=== PATIENT | female | born 1995 | race Caucasian/White ===

== ENCOUNTER 2018-03-21 19:33 | Inpatient (IN) | payer MEDICAID ==
[~2018-03-21] VITALS: Ht 162.6 cm; Wt 58.2 kg
[2018-03-21 20:18] LABS: BASOPHIL % 0.4 % (0-2); PLATELET COUNT 234 x10^3mcL (130-400); RED CELL DISTRIBUTION WIDTH 12.9 % (11.5-14.5)
[2018-03-21 20:22] LABS: UA SPECIFIC GRAVITY 1.015 (1.005-1.035); microscopic required? YES; urine erythrocyte 1+ (NEGATIVE)
[2018-03-21 20:39] LABS: CALCIUM 9.1 mg/dL (8.5-10.1); CHLORIDE SERUM 103 mmol/L (98-107); CREATININE SERUM 0.5 mg/dL (0.6-1.0); GFR1 > 60 mL/min; GLUCOSE SERUM 98 mg/dL (74-106); POTASSIUM SERUM 3.7 mmol/L (3.5-5.1); SODIUM SERUM 138 mmol/L (136-145)
[2018-03-21 20:43] LABS: ALBUMIN 3.7 g/dL (3.4-5.0); ALKALINE PHOSPHATASE 99 U/L (46-116); ALT/SGPT 27 U/L (14-59); AST/SGOT 17 U/L (15-37); BILIRUBIN TOTAL 0.56 mg/dL (0.20-1.00); LIPASE 86 IU/L (73-393); TOTAL PROTEIN, SERUM 7.9 g/dL (6.4-8.2)
[2018-03-21 22:38] LABS: AMPHETAMINE QUAL UR NONE DETECTED (NEG <=1000)
[2018-03-21 22:43] LABS: T3 TOTAL 1.38 ng/mL
[2018-03-21 22:44] LABS: FREE T4 0.88 ng/dL (0.76-1.46); FREE THYROXINE INDEX 2.5 ug/dL (1.4-4.5); T4(THYROXINE) 7.3 ug/dL (4.7-13.3)
[2018-03-21 22:47] VITALS: BP 112/64
[2018-03-21 23:09] LABS: MAGNESIUM 2.2 mg/dL (1.8-2.4); PHOSPHOROUS 3.3 mg/dL (2.5-4.9)
[2018-03-21 23:15] LABS: CHOLESTEROL/HDL RATIO 2.7
[2018-03-22 04:47] VITALS: BP 107/68
[2018-03-22 05:52] LABS: CARBON DIOXIDE 20.1 mmol/L (21-32); CHLORIDE SERUM 105 mmol/L (98-107); CREATININE SERUM 0.5 mg/dL (0.6-1.0); GFR1 > 60 mL/min; GLUCOSE SERUM 109 mg/dL (74-106); MAGNESIUM 1.6 mg/dL (1.8-2.4); PHOSPHOROUS 3.1 mg/dL (2.5-4.9); POTASSIUM SERUM 3.3 mmol/L (3.5-5.1); SODIUM SERUM 136 mmol/L (136-145)
[2018-03-22 06:50] LABS: BASOPHIL % 0.1 % (0-2); PLATELET COUNT 213 x10^3mcL (130-400); RED CELL DISTRIBUTION WIDTH 12.9 % (11.5-14.5)
[2018-03-22 08:40] VITALS: BP 107/64
[2018-03-22 13:50] VITALS: BP 111/68
[2018-03-22 18:01] VITALS: BP 105/59
[2018-03-22 20:11] VITALS: BP 107/66
[2018-03-23 05:24] VITALS: BP 99/65
[2018-03-23 06:33] LABS: BASOPHIL % 0.2 % (0-2); PLATELET COUNT 200 x10^3mcL (130-400); RED CELL DISTRIBUTION WIDTH 12.9 % (11.5-14.5)
[2018-03-23 07:18] LABS: CALCIUM 8.2 mg/dL (8.5-10.1); CHLORIDE SERUM 106 mmol/L (98-107); CREATININE SERUM 0.4 mg/dL (0.6-1.0); GFR1 > 60 mL/min; GLUCOSE SERUM 91 mg/dL (74-106); MAGNESIUM 1.9 mg/dL (1.8-2.4); POTASSIUM SERUM 3.8 mmol/L (3.5-5.1); SODIUM SERUM 137 mmol/L (136-145)
[2018-03-23 09:58] VITALS: BP 102/57
[2018-03-23 13:15] VITALS: BP 96/55
[2018-03-23 18:07] VITALS: BP 98/56
[2018-03-23 21:36] VITALS: BP 105/65
[2018-03-24 05:49] VITALS: BP 99/59
[2018-03-24 05:56] LABS: CALCIUM 8.4 mg/dL (8.5-10.1); CARBON DIOXIDE 23.9 mmol/L (21-32); CHLORIDE SERUM 113 mmol/L (98-107); CREATININE SERUM 0.4 mg/dL (0.6-1.0); GFR1 > 60 mL/min; GLUCOSE SERUM 79 mg/dL (74-106); POTASSIUM SERUM 3.9 mmol/L (3.5-5.1); SODIUM SERUM 138 mmol/L (136-145)
[2018-03-24 06:11] LABS: BASOPHIL % 0.4 % (0-2); PLATELET COUNT 213 x10^3mcL (130-400)
[2018-03-24 08:34] VITALS: BP 96/57
[2018-03-24 13:01] VITALS: BP 93/56
[2018-03-24 13:17] VITALS: Ht 162.6 cm; Wt 58.2 kg
[2018-03-24] MEDS ORDERED: CEPHALEXIN500 M1 PO (15:29)
[2018-03-24] MEDS ORDERED: LAC PO (15:30)
[2018-03-24 16:16] VITALS: BP 93/56
[2018-03-24 16:23] VITALS: BP 95/60
== END 2018-03-24 18:24 | disposition home or self-care (01) | DRG 566 ==
LOC: ED 19:33 → DU 22:02 → MU 03-24 17:09
PROVIDERS: Emergency Medicine; Family Medicine
DX: O98.812 Other maternal infectious and parasitic diseases complicating pregnancy, second trimester (principal); N17.0 Acute kidney failure with tubular necrosis; A41.9 Sepsis, unspecified organism; O23.02 Infections of kidney in pregnancy, second trimester; O26.832 Pregnancy related renal disease, second trimester; R31.9 Hematuria, unspecified; E83.42 Hypomagnesemia; E87.6 Hypokalemia; O99.282 Endocrine, nutritional and metabolic diseases complicating pregnancy, second trimester
CPT/HCPCS: 83880; 84439; 87804; J0696; J2405; J3475; J7030; Q0092

== ENCOUNTER 2019-04-14 09:27 | Emergency (ER) | payer MEDICAID ==
[~2019-04-14] VITALS: Ht 162.6 cm; Wt 65.8 kg
[~2019-04-14 09:27] MED LIST: CEPHALEXIN500 M1 PO; LAC PO
[2019-04-14 09:31] VITALS: Ht 162.6 cm; Wt 65.8 kg
[2019-04-14 10:00] LABS: CALCIUM 9.5 mg/dL (8.5-10.1); CARBON DIOXIDE 25.8 mmol/L (21-32); CHLORIDE SERUM 105 mmol/L (98-107); CREATININE SERUM 0.6 mg/dL (0.6-1.0); GFR1 > 60 mL/min; GLUCOSE SERUM 89 mg/dL (74-106); SODIUM SERUM 140 mmol/L (136-145)
[2019-04-14 10:05] LABS: ALBUMIN 3.8 g/dL (3.4-5.0); ALKALINE PHOSPHATASE 124 U/L (46-116); ALT/SGPT 17 U/L (14-59); AST/SGOT 11 U/L (15-37); BILIRUBIN TOTAL 0.26 mg/dL (0.20-1.00); TOTAL PROTEIN, SERUM 8.1 g/dL (6.4-8.2)
[2019-04-14 10:49] LABS: BASOPHIL % 0.2 % (0-2); PLATELET COUNT 311 x10^3mcL (130-400); RED CELL DISTRIBUTION WIDTH 12.8 % (11.5-14.5)
[2019-04-14 11:35] VITALS: BP 110/64
== END 2019-04-14 11:35 | disposition home or self-care (01) ==
LOC: ED 09:27
DX: N30.00 Acute cystitis without hematuria (principal)
CPT/HCPCS: 36415; J0696

== ENCOUNTER 2020-04-22 17:14 | Emergency (ER) | payer MEDICAID ==
[~2020-04-22] VITALS: Ht 162.6 cm; Wt 66.7 kg
[2020-04-22 18:28] LABS: UA SPECIFIC GRAVITY >=1.030 (1.005-1.035); microscopic required? YES; urine erythrocyte 3+ (NEGATIVE)
[2020-04-22 18:29] LABS: BASOPHIL % 0.4 % (0-2); PLATELET COUNT 343 x10^3mcL (130-400); RED CELL DISTRIBUTION WIDTH 13.3 % (11.5-14.5)
[2020-04-22 19:49] VITALS: BP 105/66
== END 2020-04-22 19:49 | disposition home or self-care (01) ==
LOC: ED 17:14
PROVIDERS: Emergency Medicine
DX: O26.891 Other specified pregnancy related conditions, first trimester (principal); R82.71 Bacteriuria; Z3A.00 Weeks of gestation of pregnancy not specified
CPT/HCPCS: Q0092

== ENCOUNTER 2020-04-24 11:57 | Emergency (ER) | payer MEDICAID ==
[~2020-04-24] VITALS: Ht 162.6 cm; Wt 66.7 kg
[2020-04-24 12:33] VITALS: Ht 162.6 cm; Wt 66.7 kg
[2020-04-24 14:41] LABS: BASOPHIL % 0.3 % (0-2); PLATELET COUNT 298 x10^3mcL (130-400); RED CELL DISTRIBUTION WIDTH 12.6 % (11.5-14.5)
[2020-04-24 17:15] VITALS: BP 128/78
== END 2020-04-24 17:15 | disposition home or self-care (01) ==
LOC: ED 11:57
PROVIDERS: Emergency Medicine
DX: O20.0 Threatened abortion (principal); O99.011 Anemia complicating pregnancy, first trimester; O23.41 Unspecified infection of urinary tract in pregnancy, first trimester; Z3A.01 Less than 8 weeks gestation of pregnancy

== ENCOUNTER 2020-06-02 14:10 | Emergency (ER) | payer MEDICAID ==
[~2020-06-02] VITALS: Ht 157.5 cm; Wt 66.2 kg
[2020-06-02 14:24] VITALS: BP 104/64; Ht 157.5 cm; Wt 66.2 kg
== END 2020-06-02 15:53 | disposition home or self-care (01) ==
LOC: ED 14:10
DX: L23.9 Allergic contact dermatitis, unspecified cause (principal); Z98.890 Other specified postprocedural states